=== PATIENT | female | born 1970 | race Two or more races ===

== ENCOUNTER 2020-06-06 15:46 | Emergency (ER) | payer OTHER ==
[~2020-06-06] VITALS: Ht 165.1 cm; Wt 63.5 kg
[2020-06-06] MEDS ORDERED: METAXALL800 MG (16:14)
== END 2020-06-06 20:01 | disposition home or self-care (01) ==
LOC: ER 15:46
DX: R07.89 Other chest pain (principal); M62.830 Muscle spasm of back

== ENCOUNTER 2023-01-31 20:28 | Emergency (ER) | payer OTHER ==
[~2023-01-31] VITALS: Ht 167.6 cm; Wt 60.3 kg
[~2023-01-31 20:28] MED LIST: METAXALL800 MG
== END 2023-01-31 21:40 | disposition home or self-care (01) ==
LOC: ER 20:28
DX: M25.511 Pain in right shoulder (principal)

== ENCOUNTER 2024-01-21 17:49 | Inpatient (IN) | payer OTHER ==
[~2024-01-21] VITALS: Ht 165.1 cm; Wt 67.1 kg
--- NOTE | 2024-01-21 18:28 | NUR ---
SE RECIBE PACIENET ALERTA Y ORIENTADA. ESTA REFIERE YI PRESENTANDO VOMITOS X4 EL MARQUITA DE [place] JUNTO A DOLOR ABDOMINAL EN CUADRANTE INFERIOR DERECHO. AL MOMENTO PRESENTA DOLOR ABDOMINAL EN GRAVEDAD 8 DE MANERA CINDY Y PUNZANTE ACOMPANADO DE HECES BLANDAS DE COLOR AMRILLO.
[2024-01-21] MEDS ORDERED: FAMOTIDINE/PF 20 MG/2 ML VIAL IV PUSH ONE (19:30)
[2024-01-21] MEDS ORDERED: KETOROLAC TROMETHAMINE 30 MG VIAL IM ONE (19:30)
[2024-01-21] MEDS ORDERED: ONDANSETRON HCL 2 MG/ML VIAL IV ONE (19:30)
[2024-01-21] MEDS ORDERED: HYOSCYAMINE SULFATE 0.125 MG TAB.SUBL SL ONE (19:30)
[2024-01-21 20:01] LABS: HEMATOCRIT 39.9 % (36.0-45.00); HEMOGLOBIN 13.7 g/dL (12.0-15.00); MEAN CELL VOLUME 87.6 fL (80.00-100.00); MEAN CORPUSCULAR HGB CONC 34.2 g/dl (32.0-36.0); PLATELET COUNT 241 K/uL (150-450); RED BLOOD COUNT 4.56 M/uL (4.00-6.00); RED CELL DISTRIBUTION WIDTH 14.3 % (11.5-14.5)
[2024-01-21 20:18] LABS: URINE APPEARANCE Clear; URINE BILIRRUBIN Negative (NEGATIVE); URINE BLOOD Negative; URINE COLOR Yellow; URINE GLUCOSE Negative (NEGATIVE); URINE LEUKOCYTE Small; URINE NITRATE Negative; URINE PROTEIN Negative (NEGATIVE); URINE UROBILINOGEN 0.2 E.U./dl
[2024-01-21 20:18] LABS: ALBUMIN 3.6 gm/dL (3.4-5.0); BILIRUBIN TOTAL 1.09 mg/dL (0.3-1.2); CREATININE SERUM 0.79 mg/dL (0.55-1.02); GFR 75.84; GLOBULINA 3.3 G/DL (2.4-3.5); POTASSIUM 4.27 mEq/L (3.5-5.1); TOTAL PROTEIN 6.9 gm/dL (6.4-8.2)
[2024-01-21 20:19] LABS: URINE BACTERIA 27.6 uL (0.0-1933); URINE EPITHELIAL CELLS 5.7 uL (0.0-38.8); URINE RBC 9.3 uL (0.0-20.8); URINE WBC 51.7 uL (0.0-23.2)
--- NOTE | 2024-01-21 20:34 | NUR ---
RN GARDNER, ORIENTA A PTE SOBRE TRATAMIENTO E INSTRUCCIONES A SEGUIR, DEBBIE REFIERE ENTENDER. LE COLECTA MUESTA MUESTRAS Y SE ADMINISTRA MEDICAMENTO ROX ORDEN MEDICA
[2024-01-21] MEDS ORDERED: 0.9 % SODIUM CHLORIDE 1,000 ML IV SCH (23:00)
[2024-01-21] MEDS ORDERED: CEFTRIAXONE SODIUM 2,000 MG in 0.9 % SODIUM CHLORIDE 100 ML IV SCH (23:07)
[2024-01-21] MEDS ORDERED: ONDANSETRON HCL 4 MG in 0.9 % SODIUM CHLORIDE 50 ML IV PRN (23:15)
[2024-01-21] MEDS ORDERED: KETOROLAC TROMETHAMINE 15 MG VIAL IV PRN (23:15)
[2024-01-22 00:22] LABS: INR 1.03; PARTIAL THROMBOPLASTIN TIME 28.2 SECONDS (22.0-34.0); PROTHROMBIN TIME 10.8 SECONDS (9.0-11.5)
[2024-01-22 00:26] LABS: ALBUMIN 3.8 gm/dL (3.4-5.0); BILIRUBIN TOTAL 1.26 mg/dL (0.3-1.2); BILIRUBIN,CONJUGATED 0.34 mg/dL (0.0-0.2); BILIRUBIN,UNCONJUGATED 0.92 mg/dL (0.0-0.6); TOTAL PROTEIN 7.3 gm/dL (6.4-8.2)
[2024-01-22] MEDS ORDERED: METRONIDAZOLE/SODIUM CHLORIDE 100 ML IV SCH (01:00)
[2024-01-22] MEDS ORDERED: KETOROLAC TROMETHAMINE 30 MG VIAL IV PRN (06:45)
[2024-01-22] MEDS ORDERED: FAMOTIDINE/PF 20 MG in 0.9 % SODIUM CHLORIDE 8 ML IV PUSH SCH (09:00)
[2024-01-23 06:38] LABS: HEMATOCRIT 39.1 % (36.0-45.00); HEMOGLOBIN 13.1 g/dL (12.0-15.00); MEAN CELL VOLUME 86.7 fL (80.00-100.00); MEAN CORPUSCULAR HEMOGLOBIN 29.1 pg (27.00-32.0); MEAN CORPUSCULAR HGB CONC 33.5 g/dl (32.0-36.0); PLATELET COUNT 219 K/uL (150-450); RED BLOOD COUNT 4.51 M/uL (4.00-6.00); RED CELL DISTRIBUTION WIDTH 14.1 % (11.5-14.5)
[2024-01-23 06:54] LABS: ALBUMIN 3.4 gm/dL (3.4-5.0); BILIRUBIN TOTAL 0.89 mg/dL (0.3-1.2); BILIRUBIN,CONJUGATED 0.2 mg/dL (0.0-0.2); BILIRUBIN,UNCONJUGATED 0.69 mg/dL (0.0-0.6); CALCIUM 8.8 mg/dL (8.5-10.1); CREATININE SERUM 0.68 mg/dL (0.55-1.02); GFR 90.17; GLOBULINA 2.5 G/DL (2.4-3.5); MAGNESIUM 2.2 mg/dL (1.8-2.4); PHOSPHOROUS 3.1 mg/dL (2.5-4.9); POTASSIUM 4.53 mEq/L (3.5-5.1); TOTAL PROTEIN 5.9 gm/dL (6.4-8.2)
[2024-01-23 07:02] LABS: C-REACTIVE PROTEIN 0.92 MG/DL (0.00-0.29)
[2024-01-24 10:12] LABS: hav igm Negative (Negative); hcv Non Reactive (Non Reactive); hep b c Negative (Negative)
== END 2024-01-23 13:13 | disposition home or self-care (01) | DRG 446 ==
LOC: ER 17:50 → MEDI 23:09
PROVIDERS: General Practice; Internal Medicine Infectious Disease; ADMIT Internal Medicine; ATTEND Internal Medicine
PROC: BW40ZZZ Ultrasonography of Abdomen (ICD-10-PCS; principal; 2024-01-21)
DX: K80.10 Calculus of gallbladder with chronic cholecystitis without obstruction (principal)

== ENCOUNTER 2024-02-04 08:00 | Day surgery (SDC) | payer OTHER ==
[2024-02-04] MEDS ORDERED: CEFAZOLIN SODIUM 1,000 MG VIAL ONE (12:27)
[2024-02-04] MEDS ORDERED: CEFAZOLIN SODIUM 1,000 MG VIAL IV ONE (14:30)
== END 2024-02-04 17:30 | disposition home or self-care (01) ==
LOC: CIR.AMB 08:00
PROVIDERS: ATTEND Surgery
DX: K80.10 Calculus of gallbladder with chronic cholecystitis without obstruction (principal)